=== PATIENT | female | born 2000 | race African-American/Black ===

== ENCOUNTER 2024-01-26 21:57 | Emergency (ER) | payer MEDICAID, OTHER ==
[~2024-01-26] VITALS: Ht 177.8 cm; Wt 73.0 kg
[2024-01-26 22:02] VITALS: PULSE 98; RESP 18; O2SAT 98
[2024-01-26 22:13] VITALS: BP 144/77; TEMP 98.4; O2SAT 100
== END 2024-01-26 22:38 | disposition home or self-care (01) ==
LOC: ER 21:57
DX: B34.9 Viral infection, unspecified (principal); R05.9 Cough, unspecified; R09.81 Nasal congestion; R11.10 Vomiting, unspecified
CPT/HCPCS: 81025; 99282